=== PATIENT | female | born 1960 | race Asian ===

== ENCOUNTER → 2016-12-03 | Outpatient (CLI) | payer OTHER | LOC: FIMAGING 11:56 | DX: Z12.31 Encounter for screening mammogram for malignant neoplasm of breast (principal) | CPT/HCPCS: G0202 ==

== ENCOUNTER → 2017-12-07 | Outpatient (CLI) | payer OTHER | LOC: FIMAGING 12:02 | PROVIDERS: ATTEND Obstetrics & Gynecology | DX: Z12.31 Encounter for screening mammogram for malignant neoplasm of breast (principal) ==

== ENCOUNTER → 2018-12-08 | Outpatient (CLI) | payer OTHER | LOC: FIMAGING 11:54 | DX: Z12.31 Encounter for screening mammogram for malignant neoplasm of breast (principal); R92.2 Inconclusive mammogram ==

== ENCOUNTER → 2018-12-30 | Outpatient (CLI) | payer OTHER | LOC: FIMAGING 10:47 | PROVIDERS: ATTEND Hospitalist | DX: R92.8 Other abnormal and inconclusive findings on diagnostic imaging of breast (principal) ==